=== PATIENT | female | born 1975 | race Caucasian/White ===

== ENCOUNTER 2016-11-26 14:46 | Emergency (ER) | payer OTHER ==
--- NOTE | 2016-11-26 15:19 | ERPHSYRPT ---
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 c/o radiating mid sternal cp to lt shoulder and lt arm to lt elbow. denies nausea. slight sob when pain was worse but denies any at present. denies diaphoresis. Physician History: 41-year-old white female with history of anxiety and depression arrives with complaint of sharp shooting left-sided chest pain which radiated to her left arm left neck and left leg symptoms began while the patient was in bed turning around states that the pain began around 1:30 she states she did not want to move because of the pain for up to 20 minutes she states she still has some pain she states she had some nausea some shortness of breath. Patient states she has not had similar pains in the past Past medical history includes anxiety and depression Past surgical history includes and cyst on her ovarys Timing/Duration: today (1:30 PM) Activities at Onset: none Quality: sharpness, stabbing Location: other (left-sided chest) Chest Pain Radiation: neck, arm (left arm left leg) Severity of Pain-Max: moderate Severity of Pain-Current: mild Modifying Factors: Improves With: movement Associated Symptoms: nausea, shortness of breath, No vomiting, No palpitations, No heartburn, No abdominal pain, No cough, No hurts to breathe, No diaphoresis, No chills, No fever, No fatigue, No weakness, No swelling/lump in chest, No syncope, No rash, No headache, No dizziness, No edema, No back pain Prior Chest Pain/Cardiac Workup: no prior chest pain Nitro Today/Relief: no nitro taken today Aspirin Treatment Today: 81 mg x 4, provided by ED Allergies/Adverse Reactions: No Known Drug Allergies Allergy (Unverified 11/26/16 14:50) Home Medications: Alprazolam [Xanax] 1 mg PO TIDPRN PRN 12/26/11 [History] Hx Tetanus, Diphtheria Vaccination/Date Given: Yes Hx Influenza Vaccination/Date Given: No Hx Pneumococcal Vaccination/Date Given: No Immunizations Up to Date: Yes - Review of Systems Constitutional: No Fever, No Chills Eyes: No Symptoms Ears, Nose, & Throat: No Symptoms Respiratory: Dyspnea, No Cough, No Cyanosis, No Dyspnea on Exertion ([place]), No Stridor, No Wheezing Cardiac: Chest Pain, No Edema, No Palpitations, No Syncope, No Orthopnea Abdominal/Gastrointestinal: Nausea, No Abdominal Pain, No Vomiting, No Diarrhea , No Constipation, No Hematemesis, No Hematochezia, No Melena, No Dysphagia, No Appetite Changes Genitourinary Symptoms: No No Symptoms, No Dysuria Musculoskeletal: No Back Pain, No Neck Pain Skin: No Rash Neurological: No Dizziness, No Focal Weakness, No Sensory Changes Psychological: No Symptoms Endocrine: No Symptoms All Other Systems: Reviewed and Negative - Past Medical History Pertinent Past Medical History: Yes Neurological History: No Pertinent History ENT History: No Pertinent History Cardiac History: No Pertinent History Respiratory History: No Pertinent History Endocrine Medical History: No Pertinent History Musculoskeletal History: No Pertinent History GI Medical History: No Pertinent History History: No Pertinent History Psycho-Social History: Anxiety, Depression Female Reproductive Disorders: No Pertinent History - Past Surgical History Past Surgical History: Yes Neuro Surgical History: No Pertinent History Cardiac: No Pertinent History Respiratory: No Pertinent History Gastrointestinal: No Pertinent History Genitourinary: No Pertinent History Musculoskeletal: No Pertinent History Female Surgical History: Section Other Surgical History: cyst ovaries removed - Social History Smoking Status: Current every day smoker Exposure to second hand smoke: Yes Drug Use: none Patient Lives Alone: No - Nursing Vital Signs Temperature: 98.1 F Temperature Source: Oral Pulse Rate: 103 Respiratory Rate: 18 Pain Intensity: 4 - Physical Exam General Appearance: mild distress Eye Exam: PERRL/EOMI, eyes nml inspection Ears, Nose, Throat Exam: normal ENT inspection, moist mucous membranes Neck Exam: normal inspection, non-tender, supple, full range of motion Respiratory Exam: normal breath sounds, lungs clear, No respiratory distress Cardiovascular Exam: regular rate/rhythm, normal heart sounds Gastrointestinal/Abdomen Exam: soft, No tenderness, No mass Back Exam: normal inspection, No CVA tenderness, No vertebral tenderness Extremity Exam: normal inspection, normal range of motion Neurologic Exam: alert, oriented x 3, cooperative, normal mood/affect, sensation nml, No motor deficits Skin Exam: normal color, warm, dry SpO2 Interpretation: normal (98HAVING ON FOR SECOND DISC IN THE [place]%) SpO2: 98 Oxygen Delivery: Room Air - Course Nursing assessment & vital signs reviewed: Yes EKG Interpreted by Me: RATE (EKG, sinus tachycardia, 10 3 bpm, normal axis, no acute ST or T wave changes noted) - Radiology Exams Chest X-ray Interpretation: Discussed w/ radiologist (no acute disease process noted) Ordered Tests: Active Orders 24 hr Category Date Time Status CHEST 1 VIEW (PORTABLE) Stat Exams 11/26/16 15:14 Completed AMYLASE Stat Lab 11/26/16 15:13 Completed CBC W DIFF Stat Lab 11/26/16 15:13 Completed CMP Stat Lab 11/26/16 15:13 Completed D-DIMER QUANTITATION Stat Lab 11/26/16 15:13 Completed HCG QUALITATIVE,SERUM Stat Lab 11/26/16 15:13 Completed LIPASE Stat Lab 11/26/16 15:13 Completed Manual Differential NC Stat Lab 11/26/16 15:13 Completed TROPONIN Q3H Lab 11/26/16 15:15 Completed TROPONIN Q3H Lab 11/26/16 18:19 Completed TROPONIN Q3H Lab 11/26/16 21:15 Ordered TROPONIN Q3H Lab 11/27/16 00:15 Ordered TROPONIN Q3H Lab 11/27/16 03:15 Ordered Medication Summary Discontinued Medications Generic Name Dose Route Start Last Admin Trade Name Freq PRN Reason Stop Dose Admin Aspirin 324 mg 11/26/16 15:21 11/26/16 15:27 Baby Aspirin 81 Mg Chew PO 11/26/16 15:22 324 mg STAT ONE Administration Lab/Rad Data: Laboratory Result Diagrams 11/26/16 15:13 11/26/16 15:13 Laboratory Results 11/26/16 11/26/16 11/26/16 Range/Units 18:19 15:15 15:13 WBC (4.0-10.5) K/mm3 RBC (4.1-5.4) M/mm3 Hgb (12.0-16.0) gm/dl Hct (35-47) % MCV (78-100) fl MCH (26-32) pg MCHC (32-36) g/dl RDW (11.5-14.0) % Plt Count (150-450) K/mm3 MPV (6-9.5) fl Segmented Neutrophils (36.0-66.0) % Lymphocytes (Manual) (24-44) % Monocytes (Manual) (0.0-12.0) % Eosinophils (Manual) (0.00-3.0) % Basophils (Manual) (0.0-1.0) % Differential Comment Platelet Estimate (NORMAL) D-Dimer (0.00-0.49) mg/L Sodium (136-145) mEq/L Potassium (3.5-5.1) mEq/L Chloride (98-107) mEq/L Carbon Dioxide (21-32) mEq/L Anion Gap (5-15) MEQ/L BUN (9-20) mg/dL Creatinine (0.55-1.30) mg/dl Estimated GFR ML/MIN Glucose (70-110) MG/DL Calcium (8.5-10.1) mg/dL Total Bilirubin (0.2-1.0) mg/dL AST (15-37) U/L ALT (12-78) U/L Alkaline Phosphatase (46-116) U/L Troponin I < 0.017 < 0.017 (0.000-0.056) ng/ml Serum Total Protein (6.4-8.2) gm/dL Albumin (3.4-5.0) g/dL Amylase 47 (25-115) U/L Lipase 130 (73-393) U/L Serum , Qual (Negative) 11/26/16 11/26/16 11/26/16 Range/Units 15:13 15:13 15:13 WBC (4.0-10.5) K/mm3 RBC (4.1-5.4) M/mm3 Hgb (12.0-16.0) gm/dl Hct (35-47) % MCV (78-100) fl MCH (26-32) pg MCHC (32-36) g/dl RDW (11.5-14.0) % Plt Count (150-450) K/mm3 MPV (6-9.5) fl Segmented Neutrophils (36.0-66.0) % Lymphocytes (Manual) (24-44) % Monocytes (Manual) (0.0-12.0) % Eosinophils (Manual) (0.00-3.0) % Basophils (Manual) (0.0-1.0) % Differential Comment Platelet Estimate (NORMAL) D-Dimer 0.373 (0.00-0.49) mg/L Sodium 141 (136-145) mEq/L Potassium 3.7 (3.5-5.1) mEq/L Chloride 103 (98-107) mEq/L Carbon Dioxide 25.7 (21-32) mEq/L Anion Gap 15.8 H (5-15) MEQ/L BUN 11 (9-20) mg/dL Creatinine 0.81 (0.55-1.30) mg/dl Estimated GFR > 60 ML/MIN Glucose 91 (70-110) MG/DL Calcium 9.5 (8.5-10.1) mg/dL Total Bilirubin 0.3 (0.2-1.0) mg/dL AST 22 (15-37) U/L ALT 24 (12-78) U/L Alkaline Phosphatase 79 (46-116) U/L Troponin I (0.000-0.056) ng/ml Serum Total Protein 7.8 (6.4-8.2) gm/dL Albumin 3.6 (3.4-5.0) g/dL Amylase (25-115) U/L Lipase (73-393) U/L Serum , Qual NEGATIVE (Negative) 11/26/16 Range/Units 15:13 WBC 11.6 H (4.0-10.5) K/mm3 RBC 4.75 (4.1-5.4) M/mm3 Hgb 14.6 (12.0-16.0) gm/dl Hct 43.4 (35-47) % MCV 91.4 (78-100) fl MCH 30.7 (26-32) pg MCHC 33.6 (32-36) g/dl RDW 13.7 (11.5-14.0) % Plt Count 209 (150-450) K/mm3 MPV 10.8 H (6-9.5) fl Segmented Neutrophils 63 (36.0-66.0) % Lymphocytes (Manual) 29 (24-44) % Monocytes (Manual) 5 (0.0-12.0) % Eosinophils (Manual) 2 (0.00-3.0) % Basophils (Manual) 1 (0.0-1.0) % Differential Comment NORMAL Platelet Estimate NORMAL (NORMAL) D-Dimer (0.00-0.49) mg/L Sodium (136-145) mEq/L Potassium (3.5-5.1) mEq/L Chloride (98-107) mEq/L Carbon Dioxide (21-32) mEq/L Anion Gap (5-15) MEQ/L BUN (9-20) mg/dL Creatinine (0.55-1.30) mg/dl Estimated GFR ML/MIN Glucose (70-110) MG/DL Calcium (8.5-10.1) mg/dL Total Bilirubin (0.2-1.0) mg/dL AST (15-37) U/L ALT (12-78) U/L Alkaline Phosphatase (46-116) U/L Troponin I (0.000-0.056) ng/ml Serum Total Protein (6.4-8.2) gm/dL Albumin (3.4-5.0) g/dL Amylase (25-115) U/L Lipase (73-393) U/L Serum , Qual (Negative) - Progress Progress: improved Air Movement: fair Progress Note: 11/26/16 16:25 Patient's EKG no acute changes chest x-ray unremarkable d-dimer within normal limits chemistry is normal CBC normal troponin normal. Patient's blood pressure did come up after admission however she is anxious. I have told her labs are essentially normal level offered to repeat her troponin. She is deciding whether she wants to do this or not. 11/26/16 19:06 Patient's repeat troponin within normal limits. Patient's blood pressure markedly improved. Patient in no pain. Will discharge patient patient to follow-up with her family doctor. - Departure Time of Disposition: 19:06 Departure Disposition: Home Clinical Impression: Chest pain Qualifiers: Chest pain type: unspecified Qualified Code(s): R07.9 - Chest pain, unspecified Condition: Fair Critical Care Time: No Additional Instructions: Return home. Rest, plenty of fluids. Follow-up with Dr. Rosenberg. Return for acute distress or for severe symptoms
[2016-11-26] MEDS ORDERED: BABY ASPIRIN 81 MG CHEW PO ONE (15:21)
--- NOTE | 2016-11-26 15:28 | XRAY ---
Indication: Chest pain. Comparison: None Portable chest clear. Heart is not enlarged for AP portable technique. Bony structures intact. Impression: Nonacute chest.
[2016-11-26 15:33] LABS: Mean Cell Volume 91.4 fl (78-100); Mean Corpuscular Hemoglobin 30.7 pg (26-32); Mean Platelet Volume 10.8 fl (6-9.5); Platelet Count 209 K/mm3 (150-450); Red Blood Count 4.75 M/mm3 (4.1-5.4); Red Cell Distribution Width 13.7 % (11.5-14.0); White Blood Count 11.6 K/mm3 (4.0-10.5)
[2016-11-26 15:51] LABS: LIPASE 130 U/L (73-393)
[2016-11-26 15:52] LABS: Basophil 1 % (0.0-1.0); Eosinophil 2 % (0.00-3.0); Platelet Estimate NORMAL (NORMAL); Total Cells Counted 100
[2016-11-26 15:59] LABS: ALBUMIN 3.6 g/dL (3.4-5.0); ALKALINE PHOSPHATASE 79 U/L (46-116); ANION GAP 15.8 MEQ/L (5-15); BILIRUBIN,TOTAL 0.3 mg/dL (0.2-1.0); BLOOD UREA NITROGEN 11 mg/dL (9-20); CHLORIDE 103 mEq/L (98-107); Carbon Dioxide 25.7 mEq/L (21-32); Glucose 91 MG/DL (70-110); SGOT/AST 22 U/L (15-37); SGPT/ALT 24 U/L (12-78); SODIUM 141 mEq/L (136-145); Total Protein 7.8 gm/dL (6.4-8.2)
[2016-11-26 16:03] LABS: Potassium 3.7 mEq/L (3.5-5.1)
[2016-11-26 19:28] VITALS: BP 127/60; PULSE 70; O2SAT 100
== END 2016-11-26 19:28 | disposition home or self-care (01) ==
LOC: ED 14:46
DX: R07.9 Chest pain, unspecified (principal); R11.0 Nausea; R06.02 Shortness of breath
CPT/HCPCS: 36000; 36415; 71010; 80053; 82150; 83690; 84484; 84703; 85025; 85379; 99284; A9270-GY

== ENCOUNTER 2017-10-13 15:33 | Emergency (ER) | payer OTHER ==
[2017-10-13] MEDS ORDERED: ULTRAM 50 MG PO ONE (17:15)
--- NOTE | 2017-10-13 17:24 | ERPHSYRPT ---
- History of Present Illness Time Seen by Provider: 10/13/17 16:46 Source: patient Patient Subjective Stated Complaint: pain to right side of forehead. had skin cancer removed three weeks ago and is still having pain at surgery site Triage Nursing Assessment: ambulated to room per self. skin w/d, color normal, resp easy. patient appears drowsy, speech slow. has surgical incision to right side of forehead with sutures present. no drainage noted. no redness noted. Physician History: CC: right forehead pain Hx: 42 y/o patient of Dr Rosenberg and Dr Larios surgeon in [place]. She had MOhs surgery to remove right forehead tumors Thursday (4 days). She had 5 ultrams to use but is out. She takes xanax. She used motrin and APAP. Pain severe. Worse with dressing off. No fever. Not diabetic. Pain worse so came to ER. Has not had the chance to contact her doctors as yet. Allergies/Adverse Reactions: No Known Drug Allergies Allergy (Verified 10/13/17 16:30) Home Medications: Alprazolam [Xanax] 1 mg PO TID 12/26/11 [History] Escitalopram Oxalate 10 mg [Lexapro 10 MG] 10 mg PO DAILY 10/13/17 [History] Tramadol HCl 50 mg [Ultram 50 mg] 50 mg PO BID 10/13/17 [History] Hx Tetanus, Diphtheria Vaccination/Date Given: Yes Hx Influenza Vaccination/Date Given: No Hx Pneumococcal Vaccination/Date Given: No Immunizations Up to Date: No - Review of Systems Constitutional: No Fever, No Chills Eyes: No Vision Changes, No Double Vision Ears, Nose, & Throat: No Symptoms Respiratory: No Symptoms Skin: No Rash - Past Medical History Pertinent Past Medical History: Yes Neurological History: No Pertinent History ENT History: No Pertinent History Cardiac History: No Pertinent History Respiratory History: No Pertinent History Endocrine Medical History: No Pertinent History Musculoskeletal History: No Pertinent History GI Medical History: No Pertinent History History: No Pertinent History Psycho-Social History: Anxiety, Depression Female Reproductive Disorders: No Pertinent History Other Medical History: skin cancer forehead - Past Surgical History Past Surgical History: Yes Neuro Surgical History: No Pertinent History Cardiac: No Pertinent History Respiratory: No Pertinent History Gastrointestinal: No Pertinent History Genitourinary: No Pertinent History Musculoskeletal: No Pertinent History Female Surgical History: Section Other Surgical History: cyst ovaries removed, skin cancer removed september 2017 - Social History Smoking Status: Current every day smoker How long have you smoked: 15 Exposure to second hand smoke: No Drug Use: none Patient Lives Alone: No - Female History Hx Now: No - Nursing Vital Signs Nursing Vital Signs: Initial Vital Signs Temperature 97.3 F 10/13/17 16:21 Pulse Rate 102 H 10/13/17 16:21 Respiratory Rate 16 10/13/17 16:21 Blood Pressure 104/73 10/13/17 16:21 O2 Sat by Pulse Oximetry 94 L 10/13/17 16:21 Pain Scale Pain Intensity [Right Head] 7 Pain Intensity 7 - Physical Exam General Appearance: alert Eye Exam: PERRL/EOMI, eyes nml inspection Ears, Nose, Throat Exam: normal ENT inspection, moist mucous membranes Neck Exam: normal inspection, non-tender, supple Respiratory Exam: lungs clear Cardiovascular Exam: regular rate/rhythm Neurologic Exam: alert, oriented x 3, cooperative, sensation nml, No motor deficits Skin Exam: warm, dry, No rash SpO2 Interpretation: normal SpO2: 94 Oxygen Delivery: Room Air Comments: 10/13/17 17:24 Explained need for her to contact her surgeon and family doctor tomorrow. ER can not refill her pain medications. Will give one ultram here and advised follow up. 10/13/17 17:26 right forehead/yazidi area has sutured laceration with minimal erythema, no drng , no swelling. - Course Nursing assessment & vital signs reviewed: Yes Ordered Tests: Medication Summary Generic Name Dose Route Start Last Admin Trade Name Elizabeth PRN Reason Stop Dose Admin Tramadol HCl 50 mg 10/13/17 17:15 Ultram 50 Mg PO 10/13/17 17:16 STAT ONE - Progress Counseled pt/family regarding: diagnosis, need for follow-up - Departure Time of Disposition: 17:25 Departure Disposition: Home Clinical Impression: post op pain right forehead Condition: Stable Critical Care Time: No Referrals: MIKE ROSENBERG [Primary Care Provider] - Instructions: Mohs Micrographic Surgery Additional Instructions: No driving. Call Dr Larios and Dr Rosenberg in AM. Dressing tonite. Report any sign of infection right away.
[2017-10-13 17:35] VITALS: BP 115/80; PULSE 79; O2SAT 95
[2017-10-13] MEDS ORDERED: ULTRAM 50 MG ONE (17:37)
== END 2017-10-13 17:39 | disposition home or self-care (01) ==
LOC: ED 15:33
DX: G89.18 Other acute postprocedural pain (principal); G50.1 Atypical facial pain; Z85.828 Personal history of other malignant neoplasm of skin
CPT/HCPCS: 99281; A9270-GY

== ENCOUNTER 2019-06-04 11:12 | Emergency (ER) | payer OTHER ==
--- NOTE | 2019-06-04 11:39 | ERPHSYRPT ---
- History of Present Illness Time Seen by Provider: 06/04/19 11:22 Source: patient Patient Subjective Stated Complaint: PT HEREFOR A WOUND CHECK,HAD TWO BX FOR SKIN CANCER ON CHEST AND RIGHT DIANE OF FACE, AND ALSO HAS SKIN CANCER REMOVED FROM UPPER LIP, PT IS CONCERNED BECAUSE THE ARE ON CHEST IS BLEEDING, AND SHE IS ALSO WORRIED ABOUT THE LIP AND WANTS IT CHECKED FOR INFECTION Triage Nursing Assessment: PT WALKED IN,RESP EASY, SKIN W/D/P. HAS BANDAGE TO LIP AND RIGHT SIDE OF FACE TAHT IS CLEAN ,DRY AND INTACT, BANDAID TO CHEST WITH BRIGHT RED BLOOD ON BANDAGE, NO REDNESS OR SELLING NOTED Physician History: 44 years old female with history of basal cell carcinoma with multiple biopsies done yesterday at dermatology office in [facility] upper lip presented to the ER with chief complaint of bleeding from one of the biopsy site on the chest. Patient reports she woke up with soaked dressing/bandage with some blood around. She did not rub or applied any pressure.she is not on any blood thinners. Currently she is not having any active bleeding. She is also concerned about upper lip dressing which is turned inward on the lip. No bleeding from lip and other facial biopsy site. She is in minimal discomfort biopsy sites. Timing/Duration: today Severity: mild Allergies/Adverse Reactions: No Known Drug Allergies Allergy (Verified 06/04/19 11:27) Home Medications: Alprazolam [Xanax] 1 mg PO TID 12/26/11 [History] Escitalopram Oxalate 10 mg [Lexapro 10 MG] 10 mg PO DAILY 10/13/17 [History] Hx Tetanus, Diphtheria Vaccination/Date Given: Yes Hx Influenza Vaccination/Date Given: No Hx Pneumococcal Vaccination/Date Given: No Immunizations Up to Date: Yes - Review of Systems Constitutional: No Symptoms Eyes: No Symptoms Ears, Nose, & Throat: No Symptoms Respiratory: No Symptoms Cardiac: No Symptoms Abdominal/Gastrointestinal: No Symptoms Musculoskeletal: No Symptoms Skin: Skin Lesions, Other Neurological: No Symptoms Hematologic/Lymphatic: No Symptoms Immunological/Allergic: No Symptoms - Past Medical History Pertinent Past Medical History: Yes Neurological History: No Pertinent History ENT History: No Pertinent History Cardiac History: No Pertinent History Respiratory History: No Pertinent History Endocrine Medical History: No Pertinent History Musculoskeletal History: No Pertinent History GI Medical History: No Pertinent History History: No Pertinent History Psycho-Social History: Anxiety, Depression Female Reproductive Disorders: No Pertinent History Other Medical History: skin cancer forehead - Past Surgical History Past Surgical History: Yes Neuro Surgical History: No Pertinent History Cardiac: No Pertinent History Respiratory: No Pertinent History Gastrointestinal: No Pertinent History Genitourinary: No Pertinent History Musculoskeletal: No Pertinent History Female Surgical History: Section Other Surgical History: cyst ovaries removed, skin cancer removed september 2017 - Social History Smoking Status: Current every day smoker How long have you smoked: 15 Exposure to second hand smoke: Yes Drug Use: none Patient Lives Alone: Yes - Female History Hx Last Menstrual Period: 10 EYARS AGO Hx Now: No - Nursing Vital Signs Nursing Vital Signs: Initial Vital Signs Temperature 97.8 F 06/04/19 11:15 Pulse Rate 91 H 06/04/19 11:15 Respiratory Rate 16 06/04/19 11:15 Blood Pressure 130/90 06/04/19 11:15 O2 Sat by Pulse Oximetry 100 06/04/19 11:15 Pain Scale Pain Intensity 5 - Physical Exam General Appearance: no apparent distress Eye Exam: PERRL/EOMI, eyes nml inspection Ears, Nose, Throat Exam: normal ENT inspection, pharynx normal Respiratory Exam: normal breath sounds, lungs clear Cardiovascular Exam: regular rate/rhythm, normal heart sounds Gastrointestinal/Abdomen Exam: soft, No tenderness Neurologic Exam: alert, oriented x 3, cooperative Skin Exam: normal color, other (1 cm biopsy site just lateral to sternum on the left. No active bleeding. Dry area exposed.) SpO2: 100 - Progress Progress: improved Progress Note: area is cleaned, applied pressure for 5 minutes. No bleeding. Dressing applied.she does not have any swelling of lips, dressing well applied. Patient is counseled to apply firm pressure for 5 minutes in case it starts bleeding again. Followup outpatient dermatology on Thursday. 06/04/19 11:40 Counseled pt/family regarding: diagnosis, need for follow-up - Departure Departure Disposition: Home Clinical Impression: S/P skin biopsy Bleeding from open wound of chest wall Qualifiers: Encounter type: initial encounter Laterality: left Qualified Code(s): S21.102A - Unspecified open wound of left front wall of thorax without penetration into thoracic cavity, initial encounter Condition: Stable Critical Care Time: No Referrals: MIKE SCOTT [Primary Care Provider] - Follow Up with PCP (followup in2-3 days ) Instructions: Skin Biopsy Additional Instructions: followup with your tech intern for evaluation in 2 days. Keep area clean. In case of bleeding again, plantar pressure for 5 minutes and dressing. The bleeding gets worse needs to return to ER.
[2019-06-04 11:59] VITALS: BP 131/92; PULSE 82; O2SAT 98
== END 2019-06-04 11:47 | disposition home or self-care (01) ==
LOC: ED 11:12
DX: S21.102A Unspecified open wound of left front wall of thorax without penetration into thoracic cavity, initial encounter (principal); C44.00 Unspecified malignant neoplasm of skin of lip; Z98.890 Other specified postprocedural states; Z85.828 Personal history of other malignant neoplasm of skin; Z72.0 Tobacco use
CPT/HCPCS: 99283

== ENCOUNTER 2019-07-18 11:43 | Day surgery (SDC) | payer OTHER ==
--- NOTE | 2019-07-15 12:00 | HP ---
PROCEDURE DATE: 07/18/19 HISTORY OF PRESENT ILLNESS: Patient is a 44 y/o who had history of basal cell carcinoma in the past and what sounds like a shave biopsy left breast and under her right eyelid area. She has had previous Mohs surgery for a cancer in the past. Was asked to be evaluated for surgical intervention. CURRENT MEDICATIONS: Vitamin D3, Xanax, Vraylar, bupropion. ALLERGIES: NKDA. PAST SURGICAL HISTORY: Had a and skin cancer removed in the past. Cyst on her ovaries in the past. FAMILY HISTORY: Family history of diabetes, cancer. SOCIAL HISTORY: Smokes some occasionally. Denies alcohol abuse. REVIEW OF SYSTEMS: 14 systems reviewed negative or noncontributory other than above and per preadmission questionnaire. No chest pain or palpitations. She has had history of skin cancer in the past. PHYSICAL EXAMINATION: GENERAL: No acute distress. She has got an area under her right eye that she does have a skin cancer requiring definitive excision as well as a little bit more towards the medial aspect of her left breast. She does have a little bit of a rash of other areas unrelated to the skin cancer site area. NECK: No JVD. CHEST: Clear to auscultation. CVS: Regular rate and rhythm. ABDOMEN: Soft. EXTREMITIES: No cyanosis. NEURO: Alert, moving extremities grossly symmetrically. IMPRESSION: 1. BASAL CELL CARCINOMA LEFT BREAST AND UNDER HER RIGHT EYELID. FELT SHE WOULD BENEFIT FROM EXCISIONAL BIOPSY. Risks and benefits explained in detail, but not limited to, bleeding; infection; possible need for skin graft or flap in the face area; risk of eyelid dysfunction or dry eye possibly requiring other procedures; the fact that she would have scar in the area; risk of if margins involved may need other treatments and/or consideration for radiation therapy. If margins clear, while excised it usually does not return, but she could get similar cancer in the skin remaining around the area or elsewhere on her body. She understands as well as the risks of the weight of the breast pulling down on the breast biopsy site; risk of dehiscence or infection possibly requiring packing; risk of involved margins; general risks of anesthesia, deep vein thrombosis, pulmonary embolism, or pneumonia, but not limited to. She understands and agrees to the planned procedure. Will proceed with excisional biopsy left breast basal cell cancer biopsy site and right face slice lower lid basal cell carcinoma biopsy site, possible flap, possible skin graft.
[~2019-07-18 11:43] MED LIST: Lactated Ringers 1,000 ML IV ONE; Sensorcaine 0.25% 10 ML ONE
[2019-07-18] MEDS ORDERED: Lactated Ringers 1,000 ML IV SCH (13:00)
[2019-07-18] MEDS ORDERED: CEFAZOLIN 2 GM-D5W BAG** 2 GM/50 ML ML IV SCH (13:30)
[2019-07-18] MEDS ORDERED: DIPRIVAN 200 MG/20 ML IV ONE (14:24)
[2019-07-18] MEDS ORDERED: SUBLIMAZE 100 MCG/2 ML ONE ×2 (14:25→15:16)
[2019-07-18] MEDS ORDERED: Versed 2 MG/2 ML Injection ONE (14:25)
--- NOTE | 2019-07-18 15:44 | OP ---
SURGERY DATE/TIME: 07/18/2019 1423 PREOPERATIVE DIAGNOSIS: History of basal cell carcinoma biopsy site in need of wide excision chest/breast area on the left. POSTOPERATIVE DIAGNOSIS: History of basal cell carcinoma biopsy site in need of wide excision chest/breast area on the left. PROCEDURE: Wide excision chest/left breast area basal cell carcinoma biopsy site with intermediate closure, local advancement flaps (3.3 cm with margins). SURGEON: Dr. Julian Neal. TIGHT BARREL INSPECTOR: Jhon Macdonald, Medical Student III. ANESTHESIA: General. ESTIMATED BLOOD LOSS: Minimal. INDICATIONS: As noted above. Risks and benefits explained in detail and not limited to and consent obtained. DESCRIPTION OF PROCEDURE AND FINDINGS: The patient is taken to the operating room. General anesthesia induced. The site had been confirmed and marked in the preoperative holding area. Left chest/breast prepped and draped in sterile fashion. After official time out and no disagreement with planned procedure, marking out to normal appearing skin on either side of this. It should be noted she had a little punctate, rash-like area. Whether this is an early new basal cell carcinoma or not, it is felt it warranted excision at the same time. It was directly in line this elongated basal cell site. Therefore a 4 to 4.5 cm long spindle-shaped excision marking out to normal appearing skin on either side of this. Dissecting down deeper subcutaneous tissue. Specimen passed off for pathology. Flaps were undermined on either side and then advanced back to the midline with interrupted 3-0 Vicryl deep and superficial subcu. Skin closed with 4-0 Vicryl. Steri-Strips and sterile dressing applied. 0.25% Marcaine local had been injected along the area. The patient tolerated the procedure well. There were no immediate complications.
[2019-07-18 15:46] VITALS: O2SAT 97
[2019-07-18 16:21] VITALS: BP 127/95; PULSE 80
== END 2019-07-18 16:25 | disposition home or self-care (01) ==
LOC: SDC 11:43
PROVIDERS: ATTEND Surgery
DX: C44.511 Basal cell carcinoma of skin of breast (principal); Z85.828 Personal history of other malignant neoplasm of skin
CPT/HCPCS: 88305; J0690; J2250; J2704; J3010

== ENCOUNTER 2019-10-21 18:51 | Emergency (ER) | payer OTHER ==
[2019-10-21 19:05] VITALS: BP 113/75; PULSE 119; O2SAT 100
[2019-10-21] MEDS ORDERED: Rocephin 1000 MG INJ ONE (19:17)
[2019-10-21] MEDS ORDERED: XYLOCAINE 1% HCL 20 ML MDV ONE (19:18)
[2019-10-21] MEDS ORDERED: Rocephin 1000 MG INJ IM ONE (19:22)
--- NOTE | 2019-10-21 19:22 | ERPHSYRPT ---
- History of Present Illness Time Seen by Provider: 10/21/19 19:18 Source: patient Exam Limitations: no limitations Patient Subjective Stated Complaint: Pt has an abcess between her breasts that started as a small bump after skin cancer removal approx 2 months ago and has gotten bigger and inflamed for the past 3 days, pt states that her was at the doctors office yesterday and they think he has MRSA Triage Nursing Assessment: Pt brought in by her niece, tachycardic, rates pain as 5/10, pulses normal, no other issues at this time Physician History: Pt has an abcess between her breasts that started as a small bump after skin cancer removal approx 2 months ago and has gotten bigger and inflamed for the past 3 days, pt states that her was at the doctors office yesterday and they think he has MRSA Timing/Duration: day(s) (three days) Severity: moderate Associated Symptoms: denies symptoms Allergies/Adverse Reactions: No Known Drug Allergies Allergy (Verified 10/21/19 18:56) Home Medications: Alprazolam [Xanax] 1 mg PO TID PRN 12/26/11 [History] Bupropion HCl 150 mg Sr [Wellbutrin SR 150 MG] 150 mg PO DAILY 07/11/19 [ History] Cariprazine HCl [Vraylar] 1.5 mg PO DAILY 07/11/19 [History] Cholecalciferol (Vitamin D3) [Vitamin D3] 5,000 mg PO DAILY 07/11/19 [History] Hx Tetanus, Diphtheria Vaccination/Date Given: Yes Hx Influenza Vaccination/Date Given: No Hx Pneumococcal Vaccination/Date Given: No - Review of Systems Constitutional: No Fever, No Chills Eyes: No Symptoms Ears, Nose, & Throat: No Symptoms Respiratory: No Cough, No Dyspnea Cardiac: No Chest Pain, No Edema, No Syncope Abdominal/Gastrointestinal: No Abdominal Pain, No Nausea, No Vomiting, No Diarrhea Genitourinary Symptoms: No Dysuria Musculoskeletal: No Back Pain, No Neck Pain Skin: Cellulitis, Skin Lesions, No Rash Neurological: No Dizziness, No Focal Weakness, No Sensory Changes Psychological: No Symptoms Endocrine: No Symptoms All Other Systems: Reviewed and Negative - Past Medical History Pertinent Past Medical History: Yes Neurological History: No Pertinent History ENT History: No Pertinent History Cardiac History: No Pertinent History Respiratory History: No Pertinent History Endocrine Medical History: No Pertinent History Musculoskeletal History: No Pertinent History GI Medical History: No Pertinent History History: No Pertinent History Psycho-Social History: Anxiety, Depression Female Reproductive Disorders: No Pertinent History Other Medical History: skin cancer forehead, also on lip and chest and below right eye - Past Surgical History Past Surgical History: Yes Neuro Surgical History: No Pertinent History Cardiac: No Pertinent History Respiratory: No Pertinent History Gastrointestinal: No Pertinent History Genitourinary: No Pertinent History Musculoskeletal: No Pertinent History Female Surgical History: Section, Tubal Ligation Other Surgical History: cyst ovaries removed,. skin cancer removed september 2017 religion and lip. may 2019 skin cancer biopsy to below right eye and left breast. c-sections x2 - Social History Smoking Status: Current every day smoker How long have you smoked: 24 years Exposure to second hand smoke: Yes Drug Use: none Patient Lives Alone: No - Female History Hx Now: No (tubal) - Nursing Vital Signs Nursing Vital Signs: Initial Vital Signs Temperature 97.4 F 10/21/19 18:57 Pulse Rate 119 H 10/21/19 18:57 Blood Pressure 113/75 10/21/19 18:57 O2 Sat by Pulse Oximetry 100 10/21/19 18:57 Pain Scale Pain Intensity 5 - Physical Exam General Appearance: no apparent distress, alert Eye Exam: PERRL/EOMI, eyes nml inspection Ears, Nose, Throat Exam: normal ENT inspection, TMs normal, pharynx normal, moist mucous membranes Neck Exam: normal inspection, non-tender, supple, full range of motion Respiratory Exam: normal breath sounds, lungs clear, No respiratory distress Cardiovascular Exam: regular rate/rhythm, normal heart sounds, normal peripheral pulses Gastrointestinal/Abdomen Exam: soft, normal bowel sounds, No tenderness, No mass Back Exam: normal inspection, normal range of motion, No CVA tenderness, No vertebral tenderness Extremity Exam: normal inspection, normal range of motion, pelvis stable Neurologic Exam: alert, oriented x 3, cooperative, normal mood/affect, nml cerebellar function, nml station & gait, sensation nml, No motor deficits Skin Exam: normal color, warm, dry, other (abscess left medial side of breast), No rash Lymphatic Exam: No adenopathy SpO2: 100 - Course Nursing assessment & vital signs reviewed: Yes Ordered Tests: Medication Summary Discontinued Medications Generic Name Dose Route Start Last Admin Trade Name Freq PRN Reason Stop Dose Admin Ceftriaxone Sodium Confirm 10/21/19 19:17 Rocephin 1000 Mg Inj Administered 10/21/19 19:18 Dose 1,000 mg .ROUTE .STK-MED ONE - Progress Progress: unchanged Counseled pt/family regarding: diagnosis, need for follow-up - Departure Departure Disposition: Home Clinical Impression: Abscess of breast, left Condition: Stable Critical Care Time: No Referrals: MIKE SCOTT [Primary Care Provider] - Instructions: Skin Abscess Additional Instructions: Discharge/Care Plan ALISON BLACKMON was seen on 10/21/19 in the Emergency Room. The patient was counseled regarding Diagnosis,Lab results, Imaging studies, need for follow up and when to return to the Emergency Room. Prescriptions given: Discharge Note I have spoken with the patient and/or caregivers. I have explained the patient' s condition, diagnosis and treatment plan based on the information available to me at this time. I have answered the patient's and/or caregiver's questions and addressed any concerns. The patient and/or caregivers have as good understanding of the patient's diagnosis, condition and treatment plan as can be expected at this point. The vital signs have been stable. The patient's condition is stable and appropriate for discharge from the emergency department. The patient will pursue further outpatient evaluation with the primary care physician or other designated or consulting physician as outlined in the discharge instructions. The patient and/or caregivers are agreeable to this plan of care and follow-up instructions have been explained in detail. The patient and/or caregivers have received these instruction. The patient/and or caregivers are aware that any significant change in condition or worsening of symptoms should prompt an immediate return to this or the closest emergency department or call 911. ALISON BLACKMON was seen on 10/21/19 n the Emergency Room. At that time you were treated for an emergent condition, during your visit Laboratory, Radiology and/or other procedures may have been ordered. It is very important that you follow-up with your Primary Care Physician MIKE SCOTT within the next 24-48 hours to review your Emergency Room visit and the final results of testing that was ordered. Some test results such as Urine Cultures, Blood Cultures, and other cultures if ordered will not be finalized for 24-48 hours. If you do not have a Primary Care Provider please call the medical records department at [phone] ext [phone] to obtain a copy of your results or you may sign into our patient portal to obtain these results by visiting us @ [email or web address] and completing the following steps: 1. Click on the Patient Portal link 2. Click the Patient Self Enrollment Link to complete the enrollment form and entering your 3. Once the enrollment form is completed you will receive an email with a temporary ID and password at the email address you provided. 4. Next choose a user name and password. Your user name must be at least 4 characters long and your password must be at least 4 characters long. 5. Choose a security question from the list and provide your answer to the question. If you already have signed into the Health Portal you may access your Health Care Information 09/03 by the following steps: 1. Login to our website @ [email or web address] 2. Enter your original user name and password. FAQS The [facility] Health Portal is an online tool that contains your Lab Results, Radiology Reports, Visit History, Discharge Instructions and Health Summary Lab and Radiology Results will not be available for 72 hours on the portal. The Portal is a secure site, passwords are encryted and URLs are re-written so they cannot be copied and pasted. You and authorized family members are the only ones who can access your Portal. Also there is a timeout feature that protects your information if you leave the Portal page open. If you have technical difficulty please use the Contact Us link on the page this will allow you to submit any questions you have regarding the Portal or you may contact the Medical Record Department at [phone] ext [phone]. Prescriptions: Levofloxacin [Levaquin 500 MG Tablet] 500 mg PO QAM #10 tablet
== END 2019-10-21 19:33 | disposition home or self-care (01) ==
LOC: ED 18:51
DX: N61.1 Abscess of the breast and nipple (principal)
CPT/HCPCS: 96372; 99283; J0696

== ENCOUNTER 2025-06-04 16:19 | Emergency (ER) | payer OTHER ==
[2025-06-04 16:35] VITALS: TEMP 98.1
[2025-06-04] MEDS ORDERED: BABY ASPIRIN 81 MG CHEW ONE (16:37)
[2025-06-04] MEDS: BABY ASPIRIN 81 MG CHEW PO ONE (16:38)
[2025-06-04 16:45] LABS: BASOPHIL % 0.6 % (0.1-1.2); Basophil (Absolute #) 0.07 x10^3/uL (0.01-0.08); Eosinophil (Absolute #) 0.48 x10^3/uL (0.04-0.36); Hematocrit 40.9 % (34.1-44.9); Hemoglobin 13.8 g/dL (11.2-15.7); IMMATURE GRAN # 0.08 x10^3u/L (0.001-0.031); IMMATURE GRAN % 0.7 % (0.001-0.429); Lymphocyte (Absolute #) 3.79 x10^3/uL (1.18-3.74); Mean Corpuscular Hemoglobin 30.4 pg (25.6-32.2); Mean Corpuscular Hgb Concent. 33.7 g/dL (32.2-35.5); Monocyte (Absolute #) 0.68 x10^3/uL (0.24-0.86); NUCLEATED RBC # 0.00 x10^3u/L (0.00-0.012); NUCLEATED RBC % 0.0 % (0.00-0.2); Platelet Count 200 x10^3/uL (182-369); Red Blood Count 4.54 x10^6/uL (3.93-5.22); White Blood Count 11.6 x10^3/uL (3.98-10.04)
[2025-06-04 16:59] LABS: Calcium 9.5 mg/dL (8.4-10.2); Carbon Dioxide 26.0 mmol/L (22-30); Creatinine 1 0.86 mg/dL (0.52-1.04); EST GLOMERULAR FILTRATION RATE 82.3 ML/MIN; Glucose 99.0 mg/dL (74-106); Potassium 3.7 mmol/L (3.5-5.1); SGOT/AST 28.0 U/L (14-36); SGPT/ALT 24.0 U/L (0-35); Total Protein 7.5 g/dL (6.3-8.2)
--- NOTE | 2025-06-04 17:20 | ERPHSYRPT ---
- History of Present Illness Time Seen by Provider: 06/04/25 16:30 Patient Subjective Stated Complaint: "pain in the upper left part of my back near my heart" Triage Nursing Assessment: Patient walks to the bed, breathing is easy, skin warm and dry. She states that she began having pain on her upper back near her heart this morning. It did get as high as a 7, but is presently rated at a three. She states she did get diaphoretic and short of breath, but denies those symptoms presently. Heart and lung sounds are normal. No edema present. She denies any history of cardiac problems. Physician History: Chest pain, onset of symptoms this morning, at the time examination her symptoms have completely resolved, she has no known history of hyperlipidemia, she denied diabetes, she had hypertension, no previous stress test Timing/Duration: today, resolved prior to arrival Activities at Onset: none Quality: aching, tightness Location: substernal Chest Pain Radiation: neck, arm Severity of Pain-Max: moderate Severity of Pain-Current: none Modifying Factors: Improves With: nothing Associated Symptoms: denies symptoms Prior Chest Pain/Cardiac Workup: no prior cardiac workup Aspirin Treatment Today: no aspirin today Allergies/Adverse Reactions: No Known Drug Allergies Allergy (Verified 01/16/25 18:10) Home Medications: Simvastatin 20Mg [Zocor 20Mg] 20 mg PO DAILY 01/16/25 [History] Hx Tetanus, Diphtheria Vaccination/Date Given: No Hx Influenza Vaccination/Date Given: No Hx Pneumococcal Vaccination/Date Given: No Immunizations Up to Date: Yes Travel Risk - International Travel Have you traveled outside of the country in past 3 weeks: No - Emerging Infectious Disease Are you exhibiting symptoms associated with any current EIDs: No - Past Medical History Pertinent Past Medical History: Yes Neurological History: No Pertinent History ENT History: No Pertinent History Cardiac History: No Pertinent History Respiratory History: No Pertinent History Endocrine Medical History: No Pertinent History Musculoskeletal History: No Pertinent History GI Medical History: No Pertinent History History: No Pertinent History Psycho-Social History: Anxiety, Depression Female Reproductive Disorders: No Pertinent History Other Medical History: skin cancer forehead, also on lip and chest and below right eye - Past Surgical History Past Surgical History: Yes Neuro Surgical History: No Pertinent History Cardiac: No Pertinent History Respiratory: No Pertinent History Gastrointestinal: No Pertinent History Genitourinary: No Pertinent History Musculoskeletal: No Pertinent History Female Surgical History: Section, Tubal Ligation Other Surgical History: cyst ovaries removed,. skin cancer removed september 2017 hinduism and lip. may 2019 skin cancer biopsy to below right eye and left breast. c-sections x2 - Female History Hx Last Menstrual Period: over 5 years ago - Social History Smoking Status: Former smoker How long have you smoked: 24 years Exposure to second hand smoke: No Drug Use: none - Social Determinants of Health Will the patient participate in the screening: Declined to provide - Nursing Vital Signs Nursing Vital Signs: Initial Vital Signs Temperature 98.1 F 06/04/25 16:20 Pulse Rate 74 06/04/25 16:20 Respiratory Rate 16 06/04/25 16:20 Blood Pressure 122/81 06/04/25 16:20 O2 Sat by Pulse Oximetry 98 06/04/25 16:20 Pain Scale Pain Intensity 3 - Physical Exam General Appearance: no apparent distress, alert, obese Eye Exam: PERRL/EOMI, eyes nml inspection Ears, Nose, Throat Exam: normal ENT inspection, moist mucous membranes Neck Exam: normal inspection, non-tender, supple, full range of motion Respiratory Exam: normal breath sounds, lungs clear, No respiratory distress Cardiovascular Exam: regular rate/rhythm, normal heart sounds Gastrointestinal/Abdomen Exam: soft, No tenderness, No mass Back Exam: normal inspection, No CVA tenderness, No vertebral tenderness Extremity Exam: normal inspection, normal range of motion Neurologic Exam: alert, oriented x 3, cooperative, normal mood/affect, sensation nml, No motor deficits Skin Exam: normal color, warm, dry SpO2 Interpretation: normal SpO2: 98 - Course EKG Interpreted by Me: RATE (90), Sinus Rhythm, NORMAL AXIS, NORMAL INTERVALS, NORMAL QRS, NORMAL ST-T - Radiology Exams Chest X-ray Interpretation: Interpreted by me, No Pneumonia, No Pneumothorax, Nml Alignment, No Infiltrates, Nml Mediastinum Ordered Tests: Active Orders 24 hr Category Date Time Status EKG-ER Only STAT Care 06/04/25 16:33 Active CHEST 1 VIEW (PORTABLE) Stat Exams 06/04/25 16:34 Taken CBC W DIFF Stat Lab 06/04/25 16:40 Completed CMP Stat Lab 06/04/25 16:40 Completed TROPONIN Q2H Lab 06/04/25 16:40 Completed TROPONIN Q2H Lab 06/04/25 18:45 Ordered TROPONIN Q2H Lab 06/04/25 22:45 Ordered Medication Summary Discontinued Medications Generic Name Dose Route Start Last Admin Trade Name Elizabeth PRN Reason Stop Dose Admin Aspirin 324 mg 06/04/25 16:33 06/04/25 16:38 Aspirin 81 Mg Tab.Chew PO 06/04/25 16:34 324 mg STAT ONE Administration Aspirin Confirm 06/04/25 16:37 Aspirin 81 Mg Tab.Chew Administered 06/04/25 16:38 Dose 324 mg .ROUTE .STK-MED ONE Lab/Rad Data: Laboratory Result Diagrams 06/04/25 16:40 06/04/25 16:40 Laboratory Results 06/04/25 06/04/25 06/04/25 Range/Units 16:40 16:40 16:40 WBC 11.6 H (3.98-10.04) x10^3/uL RBC 4.54 (3.93-5.22) x10^6/uL Hgb 13.8 (11.2-15.7) g/dL Hct 40.9 (34.1-44.9) % MCV 90.1 (79.4-94.8) fL MCH 30.4 (25.6-32.2) pg MCHC 33.7 (32.2-35.5) g/dL RDW 12.8 (11.7-14.4) % Plt Count 200 (182-369) x10^3/uL MPV 10.6 (9.4-12.3) fL Gran % 55.8 (34.0-71.1) % Immature Gran % (Auto) 0.7 H (0.001-0.429) % Nucleat RBC Rel Count 0.0 (0.00-0.2) % Eos # (Auto) 0.48 H (0.04-0.36) x10^3/uL Immature Gran # (Auto) 0.08 H (0.001-0.031) x10^3u/L Absolute Lymphs (auto) 3.79 H (1.18-3.74) x10^3/uL Absolute Monos (auto) 0.68 (0.24-0.86) x10^3/uL Absolute Nucleated RBC 0.00 (0.00-0.012) x10^3u/L Lymphocytes % 32.8 (19.3-51.7) % Monocytes % 5.9 (4.7-12.5) % Eosinophils % 4.2 (0.7-5.8) % Basophils % 0.6 (0.1-1.2) % Absolute Granulocytes 6.45 H (1.56-6.13) x10^3/uL Basophils # 0.07 (0.01-0.08) x10^3/uL Sodium 140 (135-145) mmol/L Potassium 3.7 (3.5-5.1) mmol/L Chloride 105 (98-107) mmol/L Carbon Dioxide 26 (22-30) mmol/L Anion Gap 13.5 (5-15) MEQ/L BUN 12 (7-17) mg/dL Creatinine 0.86 (0.52-1.04) mg/dL Estimated GFR 82.3 ML/MIN Glucose 99 (74-106) mg/dL Calcium 9.5 (8.4-10.2) mg/dL Total Bilirubin 0.30 (0.2-1.3) mg/dL AST 28 (14-36) U/L ALT 24 (0-35) U/L Alkaline Phosphatase 62 (38-126) U/L Troponin I < 0.012 (0.000-0.033) ng/mL Serum Total Protein 7.5 (6.3-8.2) g/dL Albumin 4.8 (3.5-5.0) g/dL - Progress Air Movement: good Progress Note: 06/04/25 18:22 Discussed labs chest x-ray EKG, she remains asymptomatic, discharged for outpatient follow-up and further workup - Departure Departure Disposition: Home Clinical Impression: Atypical chest pain Condition: Fair Critical Care Time: No Referrals: MIKE SCOTT [Primary Care Provider, [facility]] - Follow up with PCP 4 days Instructions: Atypical Chest Pain
[2025-06-04 18:12] VITALS: BP 116/90; PULSE 68; RESP 15
[2025-06-04 18:25] VITALS: O2SAT 98
--- NOTE | 2025-06-04 19:10 | XRAY ---
Indication: Chest pain. Comparison: January 13, 2018 Portable chest demonstrates new left midlung fibrosis/scarring. Remaining heart and lungs unremarkable. Bony thorax intact. No acute cardiopulmonary abnormalities.
== END 2025-06-04 18:35 | disposition home or self-care (01) ==
LOC: ED 16:19
DX: R07.89 Other chest pain (principal); I10 Essential (primary) hypertension; Z79.899 Other long term (current) drug therapy